=== PATIENT | female | born 1995 | race African-American/Black ===

== ENCOUNTER 2017-02-08 22:18 | Observation (INO) | payer SELFPAY ==
[2017-02-08 22:42] VITALS: BMI 18.5
[2017-02-08] MEDS ORDERED: Ondansetron ODT 4 MG TAB PO PRN (23:43)
[2017-02-08] MEDS ORDERED: Promethazine HCl 25 MG/ML VIAL IM PRN ×2 (23:43)
[2017-02-08] MEDS ORDERED: traMADol HCl 50 MG TAB PO PRN ×2 (23:43)
[2017-02-08] MEDS ORDERED: Ondansetron HCl/PF 4 MG/2 ML Vial IVP PRN (23:43)
[2017-02-08] MEDS ORDERED: Dextrose 50% Abboject 50 ML SYRINGE SLOW IVP PRN (23:43)
[2017-02-08] MEDS ORDERED: Dextrose 5% in Water 1,000 ML IV PRN (23:43)
[2017-02-08] MEDS ORDERED: Cyclobenzaprine 10 MG TAB PO PRN (23:43)
[2017-02-09] MEDS: Sodium Chloride 0.9% 1,000 ML IV SCH ×2 (00:15→16:30)
[2017-02-09] MEDS: Ibuprofen 600 MG TAB PO SCH ×2 (00:16→14:13)
[2017-02-09] MEDS: Acetaminophen 500 MG TAB PO SCH ×3 (00:16→14:13)
[2017-02-09] MEDS ORDERED: cefTRIAXone\\ROCEPHIN 1 GM in Syringe 10 ML SLOW IVP SCH (01:00)
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
[2017-02-09 06:20] LABS: #Lymphocytes 1.5 thou/uL (1.20-3.40); #Monocytes 0.4 thou/uL (0.11-0.59); #Neutrophils 2.5 thou/uL (1.40-6.50); %Basophils 0.2 % (0.0-1.0); %Eosinophils 0.9 % (0.0-10.0); %Lymphocytes 34.2 % (21.0-51.0); %Monocytes 9.2 % (0.0-10.0); Hematocrit 29.6 % (36.0-47.0); Mean Platelet Volume 8.4 fL (7.4-10.4); Red Blood Cell (RBC) Count 3.38 mill/uL (4.20-5.40); White Blood Cell (WBC) Count 4.5 thou/uL (4.8-10.8)
[2017-02-09 06:40] LABS: Anion Gap 9 mmol/L (10-20); BUN (Urea Nitrogen) 7 mg/dL (7.0-18.7); Calc. Creatinine Clearance 116 mL/min (70-130); Calcium 8.7 mg/dL (7.8-10.44); Carbon Dioxide 25 mmol/L (22-29); Chloride 111 mmol/L (98-107); Estimated GFR-MDRD Greater than 90
[2017-02-09 08:51] LABS: ALT (SGPT) 50 U/L (8-55); AST (SGOT) 29 U/L (5-34); Alkaline Phosphatase 38 U/L (40-150); Bilirubin, Direct 0.3 mg/dL (0.1-0.3); Bilirubin, Total 0.7 mg/dL (0.2-1.2); Lipase 5 U/L (8-78); Protein, Total 6.2 g/dL (6.0-8.3)
[2017-02-09] MEDS ORDERED: Nitrofurantoin Monohyd/M-Cryst 100 MG CAP PO SCH (09:00)
[2017-02-09] MEDS ORDERED: FLU VACC QS2017-18 36 mo. & older 0.5 ML SYRINGE IM ONE (09:00)
[2017-02-09] MEDS ORDERED: Famotidine 20 MG TAB PO SCH (09:00)
[2017-02-09 11:04] LABS: Bilirubin Negative (Negative); Blood, Urine Large (Negative); Glucose, Urine (Dipstick) Negative (Negative); Ketone, Urine 15 mg/dL (Negative); Nitrite Negative (Negative); Protein, Urine (Dipstick) 30 mg/dL (Neg-Trace); Urobilinogen 0.2 mg/dL (0.2-1.0)
[2017-02-09 11:05] LABS: Bacteria/HPF None Seen HPF (None Seen); Hyaline Casts/LPF 0-3 HYALINE CAST LPF (0-3 Hyaline); RBC/HPF GREATER THAN 50-TNTC HPF (0-3); Squamous Epithelial 0-3 HPF (0-3)
[2017-02-09] MEDS ORDERED: Iopamidol 370 76% 50 ML VIAL FS ONE (12:04)
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
[2017-02-09 16:16] VITALS: BP 97/64; TEMP 99
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
== END 2017-02-09 17:53 | disposition home or self-care (01) ==
LOC: SURG A 22:18 → INTOOBSV 22:18
PROVIDERS: ADMIT Surgery; ATTEND Surgery
DX: R10.9 Unspecified abdominal pain (principal); N39.0 Urinary tract infection, site not specified; R31.0 Gross hematuria; V43.62XA Car passenger injured in collision with other type car in traffic accident, initial encounter
CPT/HCPCS: 36415; 72194; 80048; 80076; 81001; 83690; 85025; 96374; G0378; J0696